=== PATIENT | male | born 1980 | race Caucasian/White ===

== ENCOUNTER 2016-07-13 12:42 | Emergency (ER) | payer OTHER ==
--- NOTE | 2016-07-13 18:31 | ED NURSING NOTES ---
Clinical Report - Nurses [facility] [place] [address] 07/13/2016 12:42 Patient: BAHMAN ESPINOSA TRIAGE Triage time 13:Jul 13 2016. Acuity: LEVEL 3. Chief Complaint: DEPRESSION and SUICIDAL THOUGHTS. Alert. JENNIFER COMA SCORE: Jennifer Coma Scale: 15- eyes open spontaneously (4); best verbal response- oriented x 4 (5); best motor response- obeys commands (6). --13:20 Adam Smith R.N. 13:10 07/13/16. BP: 131/91. HR: 87. RR: 16. O2 saturation: 100% on room air. Temp: 98 F. Pain level now: 0/10. --13:20 Adam Smith R.N. Weight: 72.5 kg stated. Height/Length: 73 inches Per Patient. BMI: 21.1. --13:12 Adam Smith R.N. Medications None. --13:17 Adam Smith R.N. Allergies No Known Drug Allergy. --13:17 Adam Smith R.N. Medication/allergy information source: the patient. --13:20 Adam Smith R.N. History Arrived by private vehicle. Historian: patient. Accompanied by family. Primary physician (none). ( Depressed and feeling suicidal. Pt states that he is addicted to Methamphetamines and would like to stop.). Onset. (about 1 month). He has had anxiety and describes feelings of depression. Admits to having occasional auditory hallucinations. Treatment PRESIDENT AND CMO: None. SOCIAL HX: Heavy tobacco smoker (cigarette)- 1-2 packs per day. History of drug use: methamphetamines, marijuana. No alcohol use. No infectious disease exposure. ABUSE ASSESSMENT: No report of abuse. FALL RISK ASSESSMENT: Fall risk assessment completed. No fall risk identified. NUTRITIONAL RISK ASSESSMENT: The nutritional risk assessment revealed no deficiencies. FUNCTIONAL ASSESSMENT: Functional assessment: no impairments noted. LEARNING NEEDS ASSESSMENT: The learning needs assessment revealed no barriers. SKIN INTEGRITY ASSESSMENT: Skin integrity risk assessment completed. No skin integrity risk identified. --13:20 Adam Smith R.N. PROBLEMS: Anxiety Reaction. Dental Abscess. Peptic Ulcer Disease. Dental Pain. Dental Caries. Immunizations. --13:18 Adam Smith R.N. Hernia [RuleOut]. Epididymitis [RuleOut]. --13:18 Adam Smith R.N. ADDITIONAL SURGERIES: Bowel Surgery. Cholecystectomy. Gastric Resection. Hernia Repair. --13:18 Adam Smith R.N. Interventions ID band on patient. To treatment room. --13:20 Adam Smith R.N. PHYSICAL ASSESSMENT Ambulatory to room. GENERAL / NEURO / PSYCH: Alert. Oriented X 4. Speech within normal limits. Affect appears normal. Patient appears calm and cooperative. Patient appears well-nourished and neat and clean. RESPIRATORY: Respirations not labored. CVS: Normal heart rate and rhythm. GI / : Abdomen soft and nontender. SKIN: Skin intact. Skin is warm and dry. Skin color is within normal limits. --13:20 Adam Smith R.N. NURSING PROGRESS NOTES Patient gowned. Reassurance given. Patient identifiers checked. Call light placed in reach. Side rails up. Bed placed in lowest position. Brakes of bed on. Patient ready for evaluation- chart flagged and ED physician notified. --13:21 Adam Smith R.N. Patient ID band checked for patient name and birthdate: patient confirmed. Instructions provided to collect clean catch urine and patient verbalized understanding. Clean catch urine collected with return of yellow-colored urine; sample sent to lab for urinalysis and culture. Specimen labeled in the presence of the patient. --13:55 Natty Boone Tech1 17:28 07/13/16. ( Pt refused to be placed in yellow gown and to place belongings in bag, provider notified). --17:28 Anival Vo R.N. DISPOSITION / DISCHARGE Departure time: 18:40 Jul 13 2016. Condition at departure: improved and stable. No learning barriers present. Discharge instructions provided and reviewed with the patient. Patient verbalized understanding. Written instructions provided in Faroese. The patient was discharged by the physician mortgage loan assistant. He was discharged home and accompanied by sign installer. He left the Emergency Department ambulatory and via private vehicle. Stitching Department Supervisor driving. --19:10 Yulissa Flores R.N. 19:08 07/13/16. BP: 125/84. HR: 94. RR: 18. O2 saturation: 100% on room air. Temp: 98.4 F (oral). Pain level now: 0/10. --19:10 Yulissa Flores R.N. Locked/Released at 07/13/2016 19:11 by Yulissa Flores R.N.
--- NOTE | 2016-07-13 18:31 | ED ORDER SUMMARY ---
..... Patient: BAHMAN ESPINOSA OrderSheet [facility] VisitID: [id number] [address] [place] [address] 35y, M Registration Date/Time: 07/13/2016 ORDER SHEET Weight: 72.5 kg (stated) Allergies: No Known Drug Allergy GENERAL ORDERS: CBC w Diff Urgent (13:35 07/13/2016 EKoroleva P.A.-C) (Ack 13:36 KHoerner) (17:34 MWinterer R.N.) CMP Urgent (13:35 07/13/2016 EKoroleva P.A.-C) (Ack 13:36 KHoerner) (17:34 MWinterer R.N.) Urine Drug Screen Urgent (13:35 07/13/2016 EKoroleva P.A.-C) (Ack 13:36 KHoerner) (13:54 LNations ER Tech1) MEDICATION ORDERS: IV FLUIDS: ORDER SHEET NOTES: [Electronically signed by Yulissa Flores R.N. (19:11 07/13/2016)] [Electronically signed by Mabel LeeABrisa-Jose (19:19 07/13/2016)] [Electronically locked/signed by Yulissa Flores R.N. (19:07/13/2016)]
--- NOTE | 2016-07-13 18:31 | ED NURSING NOTES ---
Clinical Report - Nurses [facility] [place] [address] 07/13/2016 12:42 Patient: BAHMAN ESPINOSA TRIAGE Triage time 13:Jul 13 2016. Acuity: LEVEL 3. Chief Complaint: DEPRESSION and SUICIDAL THOUGHTS. Alert. JENNIFER COMA SCORE: Jennifer Coma Scale: 15- eyes open spontaneously (4); best verbal response- oriented x 4 (5); best motor response- obeys commands (6). --13:20 Adam Smith R.N. 13:10 07/13/16. BP: 131/91. HR: 87. RR: 16. O2 saturation: 100% on room air. Temp: 98 F. Pain level now: 0/10. --13:20 Adam Smith R.N. Weight: 72.5 kg stated. Height/Length: 73 inches Per Patient. BMI: 21.1. --13:12 Adam Smith R.N. Medications None. --13:17 Adam Smith R.N. Allergies No Known Drug Allergy. --13:17 Adam Smith R.N. Medication/allergy information source: the patient. --13:20 Adam Smith R.N. History Arrived by private vehicle. Historian: patient. Accompanied by family. Primary physician (none). ( Depressed and feeling suicidal. Pt states that he is addicted to Methamphetamines and would like to stop.). Onset. (about 1 month). He has had anxiety and describes feelings of depression. Admits to having occasional auditory hallucinations. Treatment TOP CAGER: None. SOCIAL HX: Heavy tobacco smoker (cigarette)- 1-2 packs per day. History of drug use: methamphetamines, marijuana. No alcohol use. No infectious disease exposure. ABUSE ASSESSMENT: No report of abuse. FALL RISK ASSESSMENT: Fall risk assessment completed. No fall risk identified. NUTRITIONAL RISK ASSESSMENT: The nutritional risk assessment revealed no deficiencies. FUNCTIONAL ASSESSMENT: Functional assessment: no impairments noted. LEARNING NEEDS ASSESSMENT: The learning needs assessment revealed no barriers. SKIN INTEGRITY ASSESSMENT: Skin integrity risk assessment completed. No skin integrity risk identified. --13:20 Adam Smith R.N. PROBLEMS: Anxiety Reaction. Dental Abscess. Peptic Ulcer Disease. Dental Pain. Dental Caries. Immunizations. --13:18 Adam Smith R.N. Hernia [RuleOut]. Epididymitis [RuleOut]. --13:18 Adam Smith R.N. ADDITIONAL SURGERIES: Bowel Surgery. Cholecystectomy. Gastric Resection. Hernia Repair. --13:18 Adam Smith R.N. Interventions ID band on patient. To treatment room. --13:20 Adam Smith R.N. PHYSICAL ASSESSMENT Ambulatory to room. GENERAL / NEURO / PSYCH: Alert. Oriented X 4. Speech within normal limits. Affect appears normal. Patient appears calm and cooperative. Patient appears well-nourished and neat and clean. RESPIRATORY: Respirations not labored. CVS: Normal heart rate and rhythm. GI / : Abdomen soft and nontender. SKIN: Skin intact. Skin is warm and dry. Skin color is within normal limits. --13:20 Adam Smith R.N. NURSING PROGRESS NOTES Patient gowned. Reassurance given. Patient identifiers checked. Call light placed in reach. Side rails up. Bed placed in lowest position. Brakes of bed on. Patient ready for evaluation- chart flagged and ED physician notified. --13:21 Adam Smith R.N. Patient ID band checked for patient name and birthdate: patient confirmed. Instructions provided to collect clean catch urine and patient verbalized understanding. Clean catch urine collected with return of yellow-colored urine; sample sent to lab for urinalysis and culture. Specimen labeled in the presence of the patient. --13:55 Natty Boone Tech1 17:28 07/13/16. ( Pt refused to be placed in yellow gown and to place belongings in bag, provider notified). --17:28 Anival Vo R.N. DISPOSITION / DISCHARGE Departure time: 18:40 Jul 13 2016. Condition at departure: improved and stable. No learning barriers present. Discharge instructions provided and reviewed with the patient. Patient verbalized understanding. Written instructions provided in Georgian. The patient was discharged by the physician asset protection assistant. He was discharged home and accompanied by developer architect. He left the Emergency Department ambulatory and via private vehicle. Director Hospice Operations driving. --19:10 Yulissa Flores R.N. 19:08 07/13/16. BP: 125/84. HR: 94. RR: 18. O2 saturation: 100% on room air. Temp: 98.4 F (oral). Pain level now: 0/10. --19:10 Yulissa Flores R.N. Locked/Released at 07/13/2016 19:11 by Yulissa Flores R.N.
--- NOTE | 2016-07-13 18:31 | ED CLINICAL REPORT ---
Clinical Report - Physicians/Mid Levels [facility] [address] [place] [address] 07/13/2016 12:42 Patient: BAHMAN ESPINOSA Time Seen: 14:41 Jul 13 2016. Arrived- By private vehicle. Historian- patient. 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 (Patient reports sensation of his head of hallucinations off and on over the last year, voices saying his name. Reports some si thoughts, reports hallucinations are off/ on stating only his name, no direction for hurting him self. Denies attempt. Denies plan. Here with SO). REVIEW OF SYSTEMS No chest pain, vomiting or diarrhea. All systems otherwise negative, except as recorded above. SOCIAL HISTORY History of IV drug use: methamphetamines. Has social support. Has place to stay. ADDITIONAL NOTES The nursing notes have been reviewed. PHYSICAL EXAM Vital Signs: 07/13/2016 13:10 BP: 131/91. HR: 87. RR: 16. O2 saturation: 100%. Temp: 98 F. Pain level now: 0/10. Appearance: Alert. No acute distress. Appearance is normal. Does not appear to be anxious. Neck: Normal inspection. CVS: Normal heart rate and rhythm. Heart sounds normal. Respiratory: Breath sounds normal. Chest nontender. Abdomen: Soft and nontender. Skin: Normal skin color. Psych / Neuro: Mood and affect normal. Cognition normal. Thought process normal. Insight and judgement normal. Cranial nerves normal (as tested). No cerebellar findings. Not depressed. LABS, X-RAYS, AND EKG Laboratory Tests: CBC w Diff: (JOHN: 07/13/2016 14:20) ( MsgRcvd 07/13/2016 15:06) Final results Test Result Flag Units (Reference) WHITE BLOOD COUNT 7.7 K/uL (4.5-11.5) RED BLOOD COUNT 4.50 M/uL (4.50-5.90) HEMOGLOBIN 11.6 L gm/dL (13.5-17.5) HEMATOCRIT 36.3 L % (41.0-53.0) MEAN CELL VOLUME 81 fL (80-100) MEAN CORPUSCULAR HGB 26 pg (26-34) MEAN CORPUSCULAR HGB CONC 32 g/dL (31-37) RED CELL DISTRIBUTION WIDTH 15.2 H % (11.6-14.8) PLATELET COUNT 244 K/uL (150-400) NEUTROPHIL % 70.2 % (50-75) LYMPH % 21.6 L % (25-40) MONO % 7.6 % (3-14) EOSINOPHIL % 0.2 % (0-4) BASOPHIL % 0.4 % (0-2) Urine Drug Screen: (JOHN: 07/13/2016 13:35) ( MsgRcvd 07/13/2016 14:13) Final results Test Result Flag Units (Reference) AMPHETAMINE/METHAMPHETAMINE POSITIVE H (NEGATIVE) BARBITURATE NEGATIVE (NEGATIVE) BENZODIAZEPINE NEGATIVE (NEGATIVE) CANNABINOID NEGATIVE (NEGATIVE) COCAINE NEGATIVE (NEGATIVE) ECSTASY POSITIVE H (NEGATIVE) METHADONE NEGATIVE (NEGATIVE) OPIATE NEGATIVE (NEGATIVE) The urine drug screen is a qualitative screening test fordrug overdose and abuse. All screen results should beconsidered as presumptive.Drugs screened for are as follows:BenzodiazepinesCocaineAmphetamines/MetamphetaminesTHC (Tetrahydrocannabinol)OpiatesBarbituratesEcstasyMethadonePositive results are unconfirmed. For confirmation, notifythe lab for the specimen to be sent to the reference lab.All confirmations must be performed by a differentmethodology.The ingestion of natural herbal and plant productscontaining Ephedra/Ephedra metabolites can produce in urineone or more substances capable of cross reacting withamphetamine/methamphetamine immunoassays. These testsprovide a preliminary result only. A more specificalternative chemical method must be used to obtain aconfirmed analytical result. CMP: (JOHN: 07/13/2016 14:20) ( MsgRcvd 07/13/2016 15:22) Final results Test Result Flag Units (Reference) GLUCOSE 78 mg/dL (70-110) BUN 16 mg/dL (7-18) CREATININE 0.8 mg/dL (0.6-1.3) Estimated GFR >60 mL/min Estimated GFR- >60 mL/min Note: Persistent reduction over 3 months in eGFR<60 mL/min/1.73 m2 defines CKD. Patients with eGFR values>=60 mL/min/1.73 m2 may also have CKD if evidence ofpersistent proteinuria. Additional information may be foundat www.kidney.org. SODIUM 138 mmol/L (136-145) POTASSIUM 3.8 mmol/L (3.5-5.1) CHLORIDE 102 mmol/L (98-107) CARBON DIOXIDE 23 mmol/L (21-32) CALCIUM 8.6 mg/dL (8.5-10.1) TOTAL PROTEIN 7.2 g/dL (6.4-8.2) ALBUMIN 3.6 g/dL (3.3-5.0) BILIRUBIN, TOTAL 1.0 mg/dL (0.0-1.0) ALKALINE PHOSPHATASE 147 H U/L (46-116) AST (SGOT) 42 H U/L (15-37) ALT (SGPT) 54 U/L (12-78) . PROGRESS AND PROCEDURES Course of Care: Pt stable, very cooperative, last used meth about 24 hours, prior although his sx may be exacerbated by drug use, he does not appear under influence and is medically cleared. Safety plan with Furnace Installer Helper, and stable for outpatient management. Patient is stable. Patient/family counseled. Disposition: Discharged. CLINICAL IMPRESSION Substance abuse problems: abuse of methamphetamine. INSTRUCTIONS Follow-up: Follow up with your doctor in three days. (Electronically signed by Mabel Lee P.A.-C 07/13/2016 19:19)
--- NOTE | 2016-07-13 18:31 | ED CLINICAL REPORT ---
Clinical Report - Physicians/Mid Levels [facility] [address] [place] [address] 07/13/2016 12:42 Patient: BAHMAN ESPINOSA Time Seen: 14:41 Jul 13 2016. Arrived- By private vehicle. Historian- patient. HISTORY OF PRESENT ILLNESS Chief Complaint: DEPRESSED. 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 (Patient reports sensation of his head of hallucinations off and on over the last year, voices saying his name. Reports some si thoughts, reports hallucinations are off/ on stating only his name, no direction for hurting him self. Denies attempt. Denies plan. Here with SO). REVIEW OF SYSTEMS No chest pain, vomiting or diarrhea. All systems otherwise negative, except as recorded above. SOCIAL HISTORY History of IV drug use: methamphetamines. Has social support. Has place to stay. ADDITIONAL NOTES The nursing notes have been reviewed. PHYSICAL EXAM Vital Signs: 07/13/2016 13:10 BP: 131/91. HR: 87. RR: 16. O2 saturation: 100%. Temp: 98 F. Pain level now: 0/10. Appearance: Alert. No acute distress. Appearance is normal. Does not appear to be anxious. Neck: Normal inspection. CVS: Normal heart rate and rhythm. Heart sounds normal. Respiratory: Breath sounds normal. Chest nontender. Abdomen: Soft and nontender. Skin: Normal skin color. Psych / Neuro: Mood and affect normal. Cognition normal. Thought process normal. Insight and judgement normal. Cranial nerves normal (as tested). No cerebellar findings. Not depressed. LABS, X-RAYS, AND EKG Laboratory Tests: CBC w Diff: (JOHN: 07/13/2016 14:20) ( MsgRcvd 07/13/2016 15:06) Final results Test Result Flag Units (Reference) WHITE BLOOD COUNT 7.7 K/uL (4.5-11.5) RED BLOOD COUNT 4.50 M/uL (4.50-5.90) HEMOGLOBIN 11.6 L gm/dL (13.5-17.5) HEMATOCRIT 36.3 L % (41.0-53.0) MEAN CELL VOLUME 81 fL (80-100) MEAN CORPUSCULAR HGB 26 pg (26-34) MEAN CORPUSCULAR HGB CONC 32 g/dL (31-37) RED CELL DISTRIBUTION WIDTH 15.2 H % (11.6-14.8) PLATELET COUNT 244 K/uL (150-400) NEUTROPHIL % 70.2 % (50-75) LYMPH % 21.6 L % (25-40) MONO % 7.6 % (3-14) EOSINOPHIL % 0.2 % (0-4) BASOPHIL % 0.4 % (0-2) Urine Drug Screen: (JOHN: 07/13/2016 13:35) ( MsgRcvd 07/13/2016 14:13) Final results Test Result Flag Units (Reference) AMPHETAMINE/METHAMPHETAMINE POSITIVE H (NEGATIVE) BARBITURATE NEGATIVE (NEGATIVE) BENZODIAZEPINE NEGATIVE (NEGATIVE) CANNABINOID NEGATIVE (NEGATIVE) COCAINE NEGATIVE (NEGATIVE) ECSTASY POSITIVE H (NEGATIVE) METHADONE NEGATIVE (NEGATIVE) OPIATE NEGATIVE (NEGATIVE) The urine drug screen is a qualitative screening test fordrug overdose and abuse. All screen results should beconsidered as presumptive.Drugs screened for are as follows:BenzodiazepinesCocaineAmphetamines/MetamphetaminesTHC (Tetrahydrocannabinol)OpiatesBarbituratesEcstasyMethadonePositive results are unconfirmed. For confirmation, notifythe lab for the specimen to be sent to the reference lab.All confirmations must be performed by a differentmethodology.The ingestion of natural herbal and plant productscontaining Ephedra/Ephedra metabolites can produce in urineone or more substances capable of cross reacting withamphetamine/methamphetamine immunoassays. These testsprovide a preliminary result only. A more specificalternative chemical method must be used to obtain aconfirmed analytical result. CMP: (JOHN: 07/13/2016 14:20) ( MsgRcvd 07/13/2016 15:22) Final results Test Result Flag Units (Reference) GLUCOSE 78 mg/dL (70-110) BUN 16 mg/dL (7-18) CREATININE 0.8 mg/dL (0.6-1.3) Estimated GFR >60 mL/min Estimated GFR- >60 mL/min Note: Persistent reduction over 3 months in eGFR<60 mL/min/1.73 m2 defines CKD. Patients with eGFR values>=60 mL/min/1.73 m2 may also have CKD if evidence ofpersistent proteinuria. Additional information may be foundat www.kidney.org. SODIUM 138 mmol/L (136-145) POTASSIUM 3.8 mmol/L (3.5-5.1) CHLORIDE 102 mmol/L (98-107) CARBON DIOXIDE 23 mmol/L (21-32) CALCIUM 8.6 mg/dL (8.5-10.1) TOTAL PROTEIN 7.2 g/dL (6.4-8.2) ALBUMIN 3.6 g/dL (3.3-5.0) BILIRUBIN, TOTAL 1.0 mg/dL (0.0-1.0) ALKALINE PHOSPHATASE 147 H U/L (46-116) AST (SGOT) 42 H U/L (15-37) ALT (SGPT) 54 U/L (12-78) . PROGRESS AND PROCEDURES Course of Care: Pt stable, very cooperative, last used meth about 24 hours, prior although his sx may be exacerbated by drug use, he does not appear under influence and is medically cleared. Safety plan with Tie Binder, and stable for outpatient management. Patient is stable. Patient/family counseled. Disposition: Discharged. CLINICAL IMPRESSION Substance abuse problems: abuse of methamphetamine. INSTRUCTIONS Follow-up: Follow up with your doctor in three days. (Electronically signed by Mabel Lee P.A.-C 07/13/2016 19:19)
--- NOTE | 2016-07-13 18:31 | ED ORDER SUMMARY ---
..... Patient: BAHMAN ESPINOSA OrderSheet [facility] VisitID: [id number] [address] [place] [address] 35y, M Registration Date/Time: 07/13/2016 ORDER SHEET Weight: 72.5 kg (stated) Allergies: No Known Drug Allergy GENERAL ORDERS: CBC w Diff Urgent (13:35 07/13/2016 EKoroleva P.A.-C) (Ack 13:36 KHoerner) (17:34 MWinterer R.N.) CMP Urgent (13:35 07/13/2016 EKoroleva P.A.-C) (Ack 13:36 KHoerner) (17:34 MWinterer R.N.) Urine Drug Screen Urgent (13:35 07/13/2016 EKoroleva P.A.-C) (Ack 13:36 KHoerner) (13:54 LNations ER Tech1) MEDICATION ORDERS: IV FLUIDS: ORDER SHEET NOTES: [Electronically signed by Yulissa Flores R.N. (19:11 07/13/2016)] [Electronically signed by Mabel LeeABrisa-Jose (19:19 07/13/2016)] [Electronically locked/signed by Yulissa Flores R.N. (19:07/13/2016)]
--- NOTE | 2016-07-13 19:19 | ED DISCHARGE INSTRUCTIONS ---
Patient: BAHMAN ESPINOSA General Instructions [facility] VisitID: [id number] [address] [place] [place] [address] 35y, M Registration Date/Time: 07/13/2016 Substance abuse problems: abuse of methamphetamine. INSTRUCTIONS Follow-up: Follow up with your doctor in three days. (Electronically signed by Mabel Lee P.A.-C 07/13/2016 19:19)
--- NOTE | 2016-07-13 19:19 | ED DISCHARGE INSTRUCTIONS ---
Patient: BAHMAN ESPINOSA General Instructions [facility] VisitID: [id number] [address] [place] [place] [address] 35y, M Registration Date/Time: 07/13/2016 Substance abuse problems: abuse of methamphetamine. INSTRUCTIONS Follow-up: Follow up with your doctor in three days. (Electronically signed by Mabel Lee P.A.-C 07/13/2016 19:19)
--- NOTE | 2016-07-13 19:19 | ED MED RECONCILIATION SUMMARY ---
Patient: BAHMAN ESPINOSA Medication Reconciliation Report [facility] VisitID: [id number] [address] [place] [address] 35y, M Registration Date/Time: 07/13/2016 Weight: 72.5 kg Height/Length: 73 in. BMI: 21.1 ALLERGIES: No Known Drug Allergy The patient's Home Medications are listed below: NONE. The source(s) of the original Home Medication information: patient The following Medications were given to the patient in the Emergency Department: None. The following Medications were prescribed to the patient: None.
--- NOTE | 2016-07-13 19:19 | ED MAR SUMMARY ---
..... Medication Administration Record [facility] [address] [place], [place] [id number] Patient: BAHMAN ESPINOSA Visit ID: [id number] 35y, M Weight: 72.5 kg Height/Length: 73 in BMI: 21.1 ALLERGIES: No Known Drug Allergy
--- NOTE | 2016-07-13 19:19 | ED MAR SUMMARY ---
..... Medication Administration Record [facility] [address] [place], [place] [id number] Patient: BAHMAN ESPINOSA Visit ID: [id number] 35y, M Weight: 72.5 kg Height/Length: 73 in BMI: 21.1 ALLERGIES: No Known Drug Allergy
--- NOTE | 2016-07-13 19:19 | ED MED RECONCILIATION SUMMARY ---
Patient: BAHMAN ESPINOSA Medication Reconciliation Report [facility] VisitID: [id number] [address] [place] [address] 35y, M Registration Date/Time: 07/13/2016 Weight: 72.5 kg Height/Length: 73 in. BMI: 21.1 ALLERGIES: No Known Drug Allergy The patient's Home Medications are listed below: NONE. The source(s) of the original Home Medication information: patient The following Medications were given to the patient in the Emergency Department: None. The following Medications were prescribed to the patient: None.
== END 2016-07-13 18:40 | disposition home or self-care (01) ==
LOC: ED SRH 12:42
DX: F15.10 Other stimulant abuse, uncomplicated (principal)
CPT/HCPCS: 90100; 92760; 92761; 92762; 92763; 92764; 92765; 92766; 92767; 95059

== ENCOUNTER 2016-10-04 20:48 | Emergency (ER) | payer OTHER ==
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
--- NOTE | 2016-10-04 22:45 | ED MED RECONCILIATION SUMMARY ---
Patient: BAHMAN ESPINOSA Medication Reconciliation Report [facility] VisitID: [id number] [address] [place] [address] 36y, M Registration Date/Time: 10/04/2016 Weight: 80.7 kg Height/Length: 74 in. BMI: 22.9 ALLERGIES: No Known Drug Allergy The patient's Home Medications are listed below: THE FOLLOWING MEDICATIONS NEED TO BE RECONCILED: Amoxicillin Oral (250 mg) 1 capsule, TID Vicodin Oral (5-300 mg) 1 tablet, 3x a day The source(s) of the original Home Medication information: Not obtained. The following Medications were given to the patient in the Emergency Department: None. The following Medications were prescribed to the patient: Take OTC medications according to label instructions. Available over the counter. -- Mabel Lee, P.A.-C Acetaminophen (available over the counter): take according to label instructions. -- Mabel Lee, P.A.-C Motrin (available over the counter): take according to label instructions. -- Mabel Lee, P.A.-C
--- NOTE | 2016-10-04 22:45 | ED MED RECONCILIATION SUMMARY ---
Patient: BAHMAN ESPINOSA Medication Reconciliation Report [facility] VisitID: [id number] [address] [place] [address] 36y, M Registration Date/Time: 10/04/2016 Weight: 80.7 kg Height/Length: 74 in. BMI: 22.9 ALLERGIES: No Known Drug Allergy The patient's Home Medications are listed below: THE FOLLOWING MEDICATIONS NEED TO BE RECONCILED: Amoxicillin Oral (250 mg) 1 capsule, TID Vicodin Oral (5-300 mg) 1 tablet, 3x a day The source(s) of the original Home Medication information: Not obtained. The following Medications were given to the patient in the Emergency Department: None. The following Medications were prescribed to the patient: Take OTC medications according to label instructions. Available over the counter. -- Mabel Lee, P.A.-C Acetaminophen (available over the counter): take according to label instructions. -- Mabel Lee, P.A.-C Motrin (available over the counter): take according to label instructions. -- Mabel Lee, P.A.-C
--- NOTE | 2016-10-04 22:45 | ED MAR SUMMARY ---
..... Medication Administration Record [facility] [address] [place], [place] [id number] Patient: BAHMAN ESPINOSA Visit ID: [id number] 36y, M Weight: 80.7 kg Height/Length: 74 in BMI: 22.9 ALLERGIES: No Known Drug Allergy
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
--- NOTE | 2016-10-04 22:45 | ED MAR SUMMARY ---
..... Medication Administration Record [facility] [address] [place], [place] [id number] Patient: BAHMAN ESPINOSA Visit ID: [id number] 36y, M Weight: 80.7 kg Height/Length: 74 in BMI: 22.9 ALLERGIES: No Known Drug Allergy
== END 2016-10-04 22:25 | disposition home or self-care (01) ==
LOC: ED SRH 20:48
DX: S01.81XA Laceration without foreign body of other part of head, initial encounter (principal); S60.512A Abrasion of left hand, initial encounter; S60.511A Abrasion of right hand, initial encounter; V19.3XXA Pedal cyclist (driver) (passenger) injured in unspecified nontraffic accident, initial encounter; Y93.55 Activity, bike riding; Y99.9 Unspecified external cause status; Y92.9 Unspecified place or not applicable; Z72.0 Tobacco use

== ENCOUNTER 2016-10-11 14:52 | Emergency (ER) | payer OTHER ==
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
--- NOTE | 2016-10-11 19:15 | ED ORDER SUMMARY ---
..... Patient: BAHMAN ESPINOSA OrderSheet [facility] VisitID: [id number] [place] [address] 36y, M Registration Date/Time: 10/11/2016 ORDER SHEET Weight: 80.7 kg (stated) Allergies: No Known Drug Allergy GENERAL ORDERS: Ankle 3 or 4V Right Urgent (15:11 10/11/2016 DDean R.N. per protocol) (Ack 15:15 PWeiler ER Tech1) (15:40 DDean R.N.) Crutches (18:55 10/11/2016 Rosalind LEON) (19:08 DDean R.N.) MEDICATION ORDERS: IV FLUIDS: ORDER SHEET NOTES: [Electronically signed by Eileen Ivey R.N. (19:36 10/11/2016)] [Electronically signed by Pily Turner MD (07:24 10/22/2016)] [Electronically locked/signed by Eileen Ivey R.N. (19:36 10/11/2016)]
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
--- NOTE | 2016-10-11 19:15 | ED ORDER SUMMARY ---
..... Patient: BAHMAN ESPINOSA OrderSheet [facility] VisitID: [id number] [place] [address] 36y, M Registration Date/Time: 10/11/2016 ORDER SHEET Weight: 80.7 kg (stated) Allergies: No Known Drug Allergy GENERAL ORDERS: Ankle 3 or 4V Right Urgent (15:11 10/11/2016 DDean R.N. per protocol) (Ack 15:15 PWeiler ER Tech1) (15:40 DDean R.N.) Crutches (18:55 10/11/2016 Rosalind LEON) (19:08 DDean R.N.) MEDICATION ORDERS: IV FLUIDS: ORDER SHEET NOTES: [Electronically signed by Eileen Ivey R.N. (19:36 10/11/2016)] [Electronically signed by Pily Turner MD (07:24 10/22/2016)] [Electronically locked/signed by Eileen Ivey R.N. (19:36 10/11/2016)]
--- NOTE | 2016-10-22 07:25 | ED DISCHARGE INSTRUCTIONS ---
Patient: BAHMAN ESPINOSA General Instructions [facility] VisitID: [id number] [place] [address] 36y, M Registration Date/Time: 10/11/2016 Single superficial laceration to the right ankle.No foreign body present. Single deep abrasion to the right ankle. Skin avulsion. Crush injury to the right ankle. Suture removal; INSTRUCTIONS Apply ice for 20 minutes three times a day as needed and until better. Don't apply ice directly to skin and don't use while asleep. (Your x-rays look good--no broken bones.). Warnings: GENERAL WARNINGS: Return or contact your physician immediately if your condition worsens or changes unexpectedly, if not improving as expected, or if other problems arise. Prescription Medications: Percocet 5 mg/325 mg: take 1-2 tablets orally every 4 hours as needed for pain. Dispense fifteen (15). No refill. Substitution is permissible. Follow-up: Follow up with your doctor in seven days for suture removal. Understanding of the discharge instructions verbalized by patient. ADDITIONAL INFORMATION Laceration (All Closures) Alaceration is a cut through the skin. This will usually require stitches (sutures) or nadir if it is deep. Minor cuts may be treated with a surgical tape closure orskin glue. Home care The following guidelines will help you care for your laceration at home: Extremity, face, or trunk wounds Keep the wound clean and dry. If a bandage was applied and it becomes wet or dirty, replace it. Otherwise, leave it in place for the first 24 hours. If stitches or nadir were used, clean the wound daily. After removing the bandage, wash the area with soap and water. Use a wet cotton swab to loosen and remove any blood or crust that forms. The doctor may prescribe an antibiotic cream or ointment to prevent infection. Do not stop taking this medication until you have finished the prescribed course or the doctor tells you to stop. The doctor may also prescribe medications for pain. Follow the doctors instructions for taking these medications. You may remove the bandage to shower as usual after the first 24 hours, but do not soak the area in water (no swimming) until the stitches or nadir are removed. If surgical tape was used, keep the area clean and dry. If it becomes wet, blot it dry with a towel. If skin glue was used, do not scratch, rub, or pick at the adhesive film. Do not place tape directly over the film. Do not apply liquid, ointment, or creams to the wound while the film is in place. Do not clean the wound with peroxide and do not apply ointments. Avoid activities that cause heavy sweating until the film has fallen off. Protect the wound from prolonged exposure to sunlight or tanning lamps. You may shower as usual but do not soak the wound in water (no baths or swimming). The film will fall off by itself in 510 days. Scalp wounds During the first two days, you may carefully rinse your hair in the shower to remove blood, glass or dirt particles. After two days, you may shower and shampoo your hair normally. Do not soak your scalp in the tub or go swimming until the stitches or nadir have been removed. Talk with your doctor before applying any antibiotic ointment to the wound. Mouth wounds Eat soft foods to reduce pain. If the cut is inside of your mouth, clean by rinsing after each meal and at bedtime with a mixture of equal parts water and hydrogen peroxide (do not swallow!). Or, you can use a cotton swab to directly apply hydrogen peroxide onto the cut. Mouth wounds can be painful when eating. You may use an eope-hin-qfubyja local numbing solution for pain relief. If this is not available, you may use any numbing solution for teething babies. You may apply this directly to the sores with a cotton-tip swab or with your finger. Follow-up care Follow up with your health care provider. Most skin wounds heal within ten days. Mouth and facial wounds heal within five days. However, even with proper treatment, a wound infection may sometimes occur. Therefore, you should check the wound daily for signs of infection listed below. Stitches should be removed from the face within five days; stitches and nadir should be removed from other parts of the body within 714 days. If dissolving stitches were used in the mouth, these will fall out or dissolve without the need for removal. If tape closures were used, remove them yourself if they have not fallen off after 7 days. Ifskin glue was used, the film will fall off by itself in 510 days. When to seek medical care Get prompt medical attention if any of these occur: Bleeding not controlled by direct pressure Signs of infection, including increasing pain in the wound, increasing wound redness or swelling, or pus coming from the wound Fever of 100.4F (38C) or higher, or as directed by your health care provider Stitches or nadir come apart or fall out or surgical tape falls off before 7 days Wound edges re-open Abrasions Abrasions are skin scrapes. Their treatment depends on how large and deep the abrasion is. Home Care: If you were given a bandage, change it once a day. If your bandage sticks to the wound, soak it in warm water until it loosens. Wash the area with soap and water to remove all the cream/ointment. You may do this in a sink, under a tub faucet or shower. Rinse off the soap and pat dry with a clean towel. Reapply cream/ointment according to your doctor's instructions. This will prevent infection and help prevent the bandage from sticking. Cover the wound with a fresh non-stick bandage (Telfa). Repeat steps 1 to 4 daily, or as directed by your doctor. If the bandage becomes wet or dirty, change it as soon as possible. You may use acetaminophen (Tylenol) or ibuprofen (Motrin, Advil) to control pain, unless another pain medicine was prescribed. [ NOTE : If you have chronic liver or kidney disease or ever had a stomach ulcer or GI bleeding, talk with your doctor before using these medicines.] Do not use ibuprofen in children under six months of age. Follow Up with your physician or this facility as directed by our staff. Most skin wounds heal within ten days. However, an infection may occur despite proper treatment. Therefore, look for the early signs of infection listed below. Get Prompt Medical Attention if any of the following occur: Increasing pain in the wound Increasing redness or swelling Pus coming from the wound Fever of 100.4F (38C) or higher, or as directed by your healthcare provider Crush Injury, Foot (No Fx) A crush injury to your foot causes local pain, swelling, and sometimes bruising. There are no broken bones. This injury takes from a few days to a few weeks to heal. If the toenail has been severely injured, it may fall off in 12 weeks. A new one will usually start to grow back within a month. Home care The following guidelines will help you care for your wound at home: You may be given a splint, cast, shoe, or boot to prevent movement at the injury. Unless you were told otherwise, use crutches or a walker anddo notbear weight on the injured foot until cleared by your doctor to do so. (Crutches and walkers can be rented at many pharmacies and surgical/orthopedic supply stores). Do not put weight on a splint; it will break. Keep your leg elevated to reduce pain and swelling. When sleeping, place a pillow under the injured leg. When sitting, support the injured leg so it is level with your waist. This is very important during the first 48 hours. Apply an ice pack (ice cubes in a plastic bag, wrapped in a towel) over the injured area for 20 minutes every 12 hours the first day for pain relief. Continue this 34 times a day until the pain and swelling goes away. You may use acetaminophen or ibuprofen to control pain, unless another pain medicine was prescribed.If you have chronic liver or kidney disease or ever had a stomach ulcer or GI bleeding, talk with your doctor before using these medicines. Keep the splint/cast/boot/shoe dry. When bathing, protect it with a large plastic bag, rubber-banded at the top end. If a fiberglass splint/cast or boot gets wet, you can dry it with a hair-dryer. Unless told otherwise, you can remove a boot or shoe to bathe. If your injury includes exposed cuts or scrapes, clean these daily with soap and water. Apply antibiotic ointment. Watch for the signs of infection listed below. Follow-up care Follow up with your doctor as advised. Return sooner if you are not starting to improve within the nextthreedays. If you were given a splint, it may be changed to a cast or boot at your follow-up visit. Note:X-rays will be reviewed by a radiologist. You will be notified of any new findings that may affect your care. When to seek medical care Get prompt medical attention if any of the following occur: The plaster cast or splint becomes wet or soft The fiberglass cast or splint remains wet for more than 24 hours Increased tightness or pain under the cast or splint Toes become swollen, cold, blue, numb, or tingly Redness, warmth, swelling, drainage from the wound, or foul odor from a cast or splint Fever of 100.4F(38C) or higher, or as directed by your health care provider Suture Removal(No Complication) You were seen today for a suture removal. Your wound is healing as expected. It is unlikely that you will have any further problem. Home Care: Keep the wound clean and dry. Use a Band-Aid, if needed, to keep the wound from getting dirty for the next week. Wash the wound carefully with soap and water each day during the next week. You may shower and bathe as usual. Swimming is now permitted. Follow Up for any problems with your own doctor. Get Prompt Medical Attention if any of the following occur: Increasing pain in the wound Redness, swelling or pus coming from the wound Fever of 100.4F (38C) or higher, or as directed by your healthcare provider If the wound edges re-open You have been given the following additional information: Laceration, All Abrasion Crush Injury, Foot/Toe Suture Removal, No Complication (Electronically signed by Pily Turner MD 10/22/2016 7:24)
--- NOTE | 2016-10-22 07:25 | ED MAR SUMMARY ---
..... Medication Administration Record [facility] [address] [place], [place] [id number] Patient: BAHMAN ESPINOSA Visit ID: [id number] 36y, M Weight: 80.7 kg Height/Length: 74 in BMI: 22.9 ALLERGIES: No Known Drug Allergy
--- NOTE | 2016-10-22 07:25 | ED MAR SUMMARY ---
..... Medication Administration Record [facility] [address] [place], [place] [id number] Patient: BAHMAN ESPINOSA Visit ID: [id number] 36y, M Weight: 80.7 kg Height/Length: 74 in BMI: 22.9 ALLERGIES: No Known Drug Allergy
--- NOTE | 2016-10-22 07:25 | ED MED RECONCILIATION SUMMARY ---
Patient: BAHMAN ESPINOSA Medication Reconciliation Report [facility] VisitID: [id number] [address] [place] [address] 36y, M Registration Date/Time: 10/11/2016 Weight: 80.7 kg Height/Length: 74 in. BMI: 22.9 ALLERGIES: No Known Drug Allergy The patient's Home Medications are listed below: NONE. The source(s) of the original Home Medication information: Not obtained. The following Medications were given to the patient in the Emergency Department: None. The following Medications were prescribed to the patient: Percocet 5 mg/325 mg: take 1-2 tablets orally every 4 hours as needed for pain. Dispense fifteen (15). No refill. Substitution is permissible. -- Pily Turner MD
--- NOTE | 2016-10-22 07:25 | ED MED RECONCILIATION SUMMARY ---
Patient: BAHMAN ESPINOSA Medication Reconciliation Report [facility] VisitID: [id number] [address] [place] [address] 36y, M Registration Date/Time: 10/11/2016 Weight: 80.7 kg Height/Length: 74 in. BMI: 22.9 ALLERGIES: No Known Drug Allergy The patient's Home Medications are listed below: NONE. The source(s) of the original Home Medication information: Not obtained. The following Medications were given to the patient in the Emergency Department: None. The following Medications were prescribed to the patient: Percocet 5 mg/325 mg: take 1-2 tablets orally every 4 hours as needed for pain. Dispense fifteen (15). No refill. Substitution is permissible. -- Pily Turner MD
== END 2016-10-11 19:20 | disposition home or self-care (01) ==
LOC: ED SRH 14:52
DX: S91.011A Laceration without foreign body, right ankle, initial encounter (principal); S97.01XA Crushing injury of right ankle, initial encounter; V13.4XXA Pedal cycle driver injured in collision with car, pick-up truck or van in traffic accident, initial encounter; Y93.55 Activity, bike riding; Y92.410 Unspecified street and highway as the place of occurrence of the external cause; Y99.9 Unspecified external cause status; F17.210 Nicotine dependence, cigarettes, uncomplicated